=== PATIENT | female | born 1940 | race Caucasian/White ===

== ENCOUNTER → 2017-02-17 | Outpatient (CLI) | payer MEDICARE ==
[~2017-02-17] MED LIST: REGADENOSON 0.4 MG/5 ML DISP.SYRIN. IV ONE
== END | disposition home or self-care (01) ==
LOC: PCVCIMAG 08:14
PROVIDERS: ATTEND Internal Medicine Cardiovascular Disease
DX: I25.10 Atherosclerotic heart disease of native coronary artery without angina pectoris (principal); I48.91 Unspecified atrial fibrillation; E78.00 Pure hypercholesterolemia, unspecified; I10 Essential (primary) hypertension; I34.0 Nonrheumatic mitral (valve) insufficiency
CPT/HCPCS: 78452; 80061; 93005; 93017; 93306; A9500; G0463; J2785

== ENCOUNTER → 2018-02-25 | Outpatient (CLI) | payer MEDICARE | END | disposition home or self-care (01) | LOC: PCVCCLINIC 11:11 | DX: Z51.81 Encounter for therapeutic drug level monitoring (principal); I25.10 Atherosclerotic heart disease of native coronary artery without angina pectoris; I25.84 Coronary atherosclerosis due to calcified coronary lesion; R42 Dizziness and giddiness; I34.0 Nonrheumatic mitral (valve) insufficiency; I48.0 Paroxysmal atrial fibrillation; I10 Essential (primary) hypertension; E78.2 Mixed hyperlipidemia; Z79.899 Other long term (current) drug therapy; Z79.84 Long term (current) use of oral hypoglycemic drugs; Z79.82 Long term (current) use of aspirin | CPT/HCPCS: 80061; 93005; G0463 ==

== ENCOUNTER → 2018-09-29 | Outpatient (CLI) | payer MEDICARE ==
--- NOTE | 2018-09-29 12:39 | PCVCIMAG ---
APPROVED REPORT Study performed: 09/29/2018 11:12:18 EXAM: Comprehensive 2D, Doppler, and color-flow Echocardiogram Patient Location: Echo lab Status: routine BSA: 1.34 HR: 60 bpmBP: 160/70 mmHg Rhythm: Atrial Fibrillation Other Information Study Quality: Good Risk Factors: Cardiac Risk Factors: HTN, Hyperlipidemia Indications CAD Chest Pain 2D Dimensions IVSd: 11.83 (7-11mm)LVOT Diam: 16.00 (18-24mm) LVDd: 38.39 mm PWd: 11.43 (7-11mm)Ascending Ao: 28.88 (22-36mm) LVDs: 25.42 (25-40mm) Left Atrium: 36.43 (27-40mm) Aortic Root: 29.84 mm LV Single Plane 4CH: 63.02 % LV Single Plane 2CH: 54.51 % Biplane EF: 58.6 % Volumes Left Atrial Volume (Systole) Single Plane 4CH: 65.08 mLSingle Plane 2CH: 46.54 mL LA ESV Index: 44.00 mL/m2 Aortic Valve AoV Peak Ben.: 1.16 m/s AO Peak Gr.: 5.84 mmHgLVOT Max P.46 mmHg LVOT Max V: 1.06 m/s JONATHAN Vmax: 1.93 cm2 Pulmonary Valve PV Peak Ben.: 0.95 m/sPV Peak Gr.: 3.58 mmHg SC End Vmax: 1.68 m/s Tricuspid Valve TR Peak Ben.: 4.45 m/sRAP Estimate: 7.00 mmHg TR Peak Gr.: 79.16 mmHg PA Pressure: 86.00 mmHg Left Ventricle The left ventricle is normal size. There is normal LV segmental wall motion. Borderline concentric left ventricular hypertrophy. Left ventricular systolic function is normal. The left ventricular ejection fraction is within the normal range. LVEF is 60%. This study is not technically sufficient to allow evaluation of the LV diastolic function due to atrial fibrillation. Right Ventricle Right ventricle is mildly dilated. The right ventricular systolic function is normal. Atria Left atrium is moderately dilated. Right atrium is dilated. Aortic Valve The aortic valve is normal in structure. Trace aortic regurgitation. There is no aortic valvular stenosis. Mitral Valve The mitral valve is normal in structure. Moderate mitral regurgitation. No evidence of mitral valve stenosis. Tricuspid Valve The tricuspid valve is normal in structure. Moderate tricuspid regurgitation. Pulmonary artery pressure is 86 mmHg. Pulmonic Valve The pulmonary valve is normal in structure. Mild to moderate pulmonic regurgitation. Great Vessels The aortic root is normal in size. IVC is normal in size and collapses >50% with inspiration. Pericardium There is no pericardial effusion. <Conclusion> The left ventricle is normal size. Borderline concentric left ventricular hypertrophy. LVEF is 60%. This study is not technically sufficient to allow evaluation of the LV diastolic function due to atrial fibrillation. Right ventricle is mildly dilated. Left atrium is moderately dilated. Right atrium is dilated. Trace aortic regurgitation. Moderate mitral regurgitation. Moderate tricuspid regurgitation. Pulmonary artery pressure is 86 mmHg. Mild to moderate pulmonic regurgitation. The aortic root is normal in size. There is no pericardial effusion.
== END | disposition home or self-care (01) ==
LOC: PCVCIMAG 09:47
PROVIDERS: ATTEND Internal Medicine Cardiovascular Disease
DX: I08.1 Rheumatic disorders of both mitral and tricuspid valves (principal); I25.10 Atherosclerotic heart disease of native coronary artery without angina pectoris; E11.9 Type 2 diabetes mellitus without complications; I48.0 Paroxysmal atrial fibrillation; I10 Essential (primary) hypertension; E78.00 Pure hypercholesterolemia, unspecified; R07.89 Other chest pain; R06.02 Shortness of breath; I27.20 Pulmonary hypertension, unspecified; E78.5 Hyperlipidemia, unspecified; Z79.4 Long term (current) use of insulin; Z79.82 Long term (current) use of aspirin
CPT/HCPCS: 93005; 93306; G0463

== ENCOUNTER → 2019-03-30 | Outpatient (CLI) | payer MEDICARE | END | disposition home or self-care (01) | LOC: PCVCCLINIC 11:00 | PROVIDERS: ATTEND Internal Medicine | DX: I25.10 Atherosclerotic heart disease of native coronary artery without angina pectoris (principal); E78.2 Mixed hyperlipidemia; I10 Essential (primary) hypertension; I27.20 Pulmonary hypertension, unspecified; D68.59 Other primary thrombophilia; I48.0 Paroxysmal atrial fibrillation; D50.9 Iron deficiency anemia, unspecified; Z88.8 Allergy status to other drugs, medicaments and biological substances | CPT/HCPCS: 36415; 80061; 93005; G0463 ==

== ENCOUNTER → 2019-04-03 | Outpatient (CLI) | payer MEDICARE ==
--- NOTE | 2019-04-03 20:57 | PCVCIMAG ---
APPROVED REPORT Study performed: 04/03/2019 09:43:21 EXAM: Comprehensive 2D, Doppler, and color-flow Echocardiogram Patient Location: Echo lab Status: routine BSA: 1.30 HR: 51 bpmBP: 158/68 mmHg Rhythm: Bradycardia Other Information Study Quality: Adequate Risk Factors: Cardiac Risk Factors: HTN Indications Pulmonary Hypertension Atrial Fibrillation CAD 2D Dimensions IVSd: 15.16 (7-11mm) LVDd: 32.97 mm PWd: 14.08 (7-11mm)Ascending Ao: 32.50 (22-36mm) LVDs: 26.64 (25-40mm) Left Atrium: 36.91 (27-40mm) Aortic Root: 28.21 mm LV Single Plane 4CH: 61.90 % LV Single Plane 2CH: 54.61 % Biplane EF: 57.5 % Volumes Left Atrial Volume (Systole) Single Plane 4CH: 66.13 mLSingle Plane 2CH: 75.71 mL LA ESV Index: 55.00 mL/m2 Aortic Valve AoV Peak Ben.: 1.40 m/s AO Peak Gr.: 7.87 mmHgLVOT Max P.55 mmHg LVOT Max V: 1.07 m/s Mitral Valve IVRT: 55.36 ms Pulmonary Valve PV Peak Ben.: 0.89 m/sPV Peak Gr.: 3.17 mmHg MS End Vmax: 1.31 m/s Pulmonary Vein P Vein S: 0.31 m/s P Vein D: 0.83 m/s P Vein S/D Ratio: 0.37 Tricuspid Valve TR Peak Ben.: 4.55 m/s TR Peak Gr.: 82.95 mmHg Left Ventricle The left ventricle is normal size. There is normal LV segmental wall motion. Mild to moderate concentric left ventricular hypertrophy. Left ventricular systolic function is normal. The left ventricular ejection fraction is within the normal range. LVEF is 55-60%. This study is not technically sufficient to allow evaluation of the LV diastolic function. Right Ventricle The right ventricle is normal size. The right ventricular systolic function is normal. Atria Left atrium is severely dilated. Right atrium is moderately dilated. Aortic Valve The aortic valve is normal in structure. Mild aortic regurgitation. There is no aortic valvular stenosis. Mitral Valve Heavy posterior mitral annular calcification. Mild to moderate mitral regurgitation. No evidence of mitral valve stenosis. Tricuspid Valve The tricuspid valve is normal in structure. Moderate tricuspid regurgitation with PAP of 93 mmHg. Severe pulmonary hypertension. Pulmonic Valve The pulmonary valve is normal in structure. Severe pulmonic regurgitation. Great Vessels The aortic root is normal in size. IVC is normal in size and collapses >50% with inspiration. Pericardium There is no pericardial effusion. There is no pleural effusion. <Conclusion> The left ventricle is normal size. Mild to moderate concentric left ventricular hypertrophy. LVEF is 55-60%. This study is not technically sufficient to allow evaluation of the LV diastolic function. The right ventricle is normal size. Left atrium is severely dilated. Right atrium is moderately dilated. Mild aortic regurgitation. Mild to moderate mitral regurgitation. Moderate tricuspid regurgitation with PAP of 93 mmHg. Severe pulmonary hypertension. Severe pulmonic regurgitation. IVC is normal in size and collapses >50% with inspiration. There is no pericardial effusion.
== END | disposition home or self-care (01) ==
LOC: PCVCIMAG 09:57
PROVIDERS: ATTEND Internal Medicine Cardiovascular Disease
DX: I08.8 Other rheumatic multiple valve diseases (principal); I25.10 Atherosclerotic heart disease of native coronary artery without angina pectoris; I48.91 Unspecified atrial fibrillation; I27.20 Pulmonary hypertension, unspecified
CPT/HCPCS: 93306

== ENCOUNTER → 2019-10-04 | Outpatient (CLI) | payer MEDICARE | END | disposition home or self-care (01) | LOC: PCVCCLINIC 10:30 | PROVIDERS: ATTEND Internal Medicine Cardiovascular Disease | DX: I25.10 Atherosclerotic heart disease of native coronary artery without angina pectoris (principal); R94.31 Abnormal electrocardiogram [ECG] [EKG]; E78.00 Pure hypercholesterolemia, unspecified; I10 Essential (primary) hypertension; I27.20 Pulmonary hypertension, unspecified; E11.9 Type 2 diabetes mellitus without complications; D68.59 Other primary thrombophilia; Z79.4 Long term (current) use of insulin; Z90.710 Acquired absence of both cervix and uterus; Z90.09 Acquired absence of other part of head and neck; Z79.82 Long term (current) use of aspirin; Z79.899 Other long term (current) drug therapy; Z82.49 Family history of ischemic heart disease and other diseases of the circulatory system; Z88.8 Allergy status to other drugs, medicaments and biological substances | CPT/HCPCS: 93005; G0463 ==